=== PATIENT | female | born 1935 | race Caucasian/White ===

== ENCOUNTER 2022-02-18 14:00 | Outpatient (RCR) | payer MEDICARE, BC, SELFPAY | END 2022-04-20 13:07 | disposition home or self-care (01) | PROVIDERS: PCP Family Medicine; Visit Provider Family Medicine | DX: M54.41 Lumbago with sciatica, right side (principal); M62.81 Muscle weakness (generalized); Z51.89 Encounter for other specified aftercare | CPT/HCPCS: 97110; 97161 ==

== ENCOUNTER 2022-08-10 07:50 | Emergency (ER) | payer MEDICARE, BC, SELFPAY ==
[2022-08-10] VITALS (9 sets, daily range): BP systolic 121–141; BP diastolic 62–83; PULSE 66–72; RESP 16–18; TEMP 36.3; O2SAT 96–99; BMI 20.2
--- NOTE | 2022-08-10 09:00 | ED_ITS ---
HPI - General Adult General Chief complaint: Chest Pain Stated complaint: left shoulder pain Time Seen by Provider: 08/10/22 08:44 History of Present Illness HPI narrative: This 86-year-old female comes in reporting some pain in her left shoulder and neck. She also feels some pain down into her left breast. Occasionally this pain radiates down into her left hand. 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 She has been taking some [id number] medicines. She states that she wants to be sure that her heart is okay. She does not describe any additional symptoms of nausea, vomiting, lightheadedness, shortness of breath, or diaphoresis. She has good exercise tolerance and does not have any symptoms with exertion. Related Data Previous Rx's Medication Instructions Recorded fluorouracil 5 % topical cream 1 applic topical BID #40 grams 03/01/22 methylprednisolone 4 mg tablets in See Rx Instructions PO .COMPLEX 08/10/22 a dose pack (Medrol (Mark)) #21 ea Allergies Allergy/AdvReac Type Severity Reaction Status Date / Time No Known Drug Allergies Allergy Verified 08/02/22 11:15 Review of Systems Status of ROS: Reports: 10 or more systems reviewed and unremarkable except as noted in History and below Narrative: Constitutional: No fevers, no weight gain or loss. Eyes: No discharge. No vision changes. HENT: No congestion, no sore throat, no ear pain. Cardiovascular: No chest pain, no palpitations. Respiratory: No shortness of breath, no wheezes, no cough. Gastrointestinal: No abdominal pain, no vomiting, no diarrhea. Genitourinary: No dysuria, no hematuria. Musculoskeletal: Normal range of motion. She reports some pain in the left side of her neck extending into the posterior and anterior shoulder and occasionally down her arm. Skin: No rashes, no pruritis. Neurological: No dizziness, weakness, sensory change, speech change. Endo/Heme/Allergies: No bruising or bleeding. No polydipsia. Pysch: no suicidality, no anxiety, no insomnia. All other systems reviewed and are negative. PFSH PFSH Social History Smoking Status: Former smoker Do you use any of these nicotine containing products: None Second hand tobacco smoke exposure: No How often do you have a drink containing alcohol: never How often do you have six or more drinks on one occasion: Never AUDIT-C Alcohol total score: 0 Non-prescribed substance use: denies use service: No Exam Narrative: Exam Narrative: Constitutional: Well-developed, well-nourished, no acute distress. HEENT: Normocephalic, atraumatic. Neck: Normal range of motion. Nontender. Supple. Heart: Regular. No murmurs. Normal rate. Intact distal pulses. Lungs: Clear to auscultation. No chest discomfort. No wheezes, rhonchi, or rales. Abdomen: Normal bowel sounds. Nontender. No rebound tenderness. Genitalia: Deferred. Back: No midline tenderness. Normal range of motion. Extremities: Normal range of motion. No injury. Skin: Intact. No rash. Warm. No erythema or pallor. Neurologic: No altered sensation. No weakness. Alert and oriented. Psychiatric: No suicidality. No anxiety or depression. No insomnia. Nursing notes and vitals signs are reviewed. Const: Vital Signs, click to edit/add: Vital Signs - 24 hr 08/10/22 08:00 08/10/22 08:23 08/10/22 08:27 Temperature 97.4 F L Pulse Rate 68 70 Pulse Rate [Pulse Oximeter] 67 Respiratory Rate 18 16 Blood Pressure 126/81 Blood Pressure [Le ft Upper Arm] 141/80 H Pulse Oximetry 99 98 99 Oxygen Delivery Me thod Room Air Course Vital Signs Vital signs: Initial Vital Signs Temperature 97.4 F L 08/10/22 08:00 Temperature Source Temporal Artery Scan 08/10/22 08:00 Pulse Rate 67 08/10/22 08:00 Pulse Rhythm Regular 08/10/22 08:00 Respiratory Rate 18 08/10/22 08:00 Blood Pressure 141/80 H 08/10/22 08:00 Blood Pressure Mean 100 08/10/22 08:00 Blood Pressure Position Supine 08/10/22 08:00 Pulse Oximetry 99 08/10/22 08:00 Oxygen Delivery Method Room Air 08/10/22 08:00 Vital Signs Temperature 97.4 F L 08/10/22 08:00 Pulse Rate 67 08/10/22 08:00 Respiratory Rate 18 08/10/22 08:00 Blood Pressure 141/80 H 08/10/22 08:00 Pulse Oximetry 99 08/10/22 08:00 Oxygen Delivery Method Room Air 08/10/22 08:00 Temperature 97.4 F L 08/10/22 08:00 Pulse Rate 70 08/10/22 08:27 Respiratory Rate 16 08/10/22 08:27 Blood Pressure 126/81 08/10/22 08:27 Pulse Oximetry 99 08/10/22 08:27 Oxygen Delivery Method Room Air 08/10/22 08:00 Medical Decision Making MDM Narrative Medical decision making narrative: This patient comes in with left neck and shoulder symptoms as described above. Her symptoms are more suspicious for nerve impingement or muscle spasm. Her EKG returns normal. She is not showing any signs or symptoms suspicious for a cardiac cause for these symptoms. I did describe a Spurling's test maneuver in attempt to help diagnose a cervical radiculopathy. The patient states that she has vertigo symptoms when extending her head so she did not participate in this test. Nevertheless her symptoms are more suspicious for nerve impingement. I did offer lab and imaging studies which the patient declined in a process of shared decision making. She did receive a prescription for Medrol Dosepak. She is satisfied and reassured with her visit here and will use [id number] medicines additionally as needed and directed for symptomatic relief. ECG Data Attestation: I personally reviewed and interpreted this ECG as follows: Interpretation: Normal sinus rhythm. Rate is 66 beats per minute. There are no ST or T-wave abnormalities. Discharge Plan Discharge Clinical Impression: Cervical radiculopathy Patient Disposition: Home, Self-Care Condition: Unchanged Additional Instructions: Take medication as needed and directed. Use [id number] medicines also as needed and directed. Follow up with MD return if worsening. Prescriptions: New methylprednisolone [Medrol (Mark)] 4 mg tablets,dose pack See Rx Instructions .ROUTE .COMPLEX Qty: 21 0RF Rx Instructions: orally per package directions No Action fluorouracil 5 % cream 1 applic topical BID Qty: 40 0RF Rx Instructions: Apply topically to affected area once weekly Stand Alone Forms: [facility] Info Instructions
== END 2022-08-10 09:16 | disposition home or self-care (01) ==
LOC: ED 09:05
PROVIDERS: Emergency Provider Emergency Medicine Emergency Medical Services; PCP Family Medicine
DX: M54.12 Radiculopathy, cervical region (principal)
CPT/HCPCS: 93005; 99283; 99284

== ENCOUNTER 2022-08-16 06:31 | Emergency (ER) | payer MEDICARE, BC, SELFPAY ==
[2022-08-16 06:40] VITALS: BP 124/77; PULSE 76; RESP 16; TEMP 36.9; O2SAT 100; BMI 20.2
[2022-08-16] MEDS: predniSONE 10 MG TABLET 40 MG PO (07:23)
[2022-08-16] MEDS: ACETAMINOPHEN 325 MG TABLET 650 MG PO (07:23)
[2022-08-16] MEDS: OXYCODONE 5 MG TABLET 2.5 MG PO (07:23)
--- NOTE | 2022-08-16 07:30 | ED_ITS ---
HPI - General Adult General Chief complaint: Shoulder Injury/Pain Stated complaint: L shoulder pain Time Seen by Provider: 08/16/22 06:37 Source: patient and family Mode of arrival: ambulatory History of Present Illness HPI narrative: 86-year-old female presents the emergency department for evaluation of pain in the left shoulder blade radiating down the left arm. Patient had thorough workup 5 days ago, notes are reviewed. No signs of cardiac or pulmonary disease was identified. She was diagnosed with cervical radiculopathy and was started on Medrol Dosepak and Tylenol. Patient reports that she has been using Tylenol and completed her Medrol Dosepak yesterday but her symptoms are not improving. The might be a little bit better during the day but she is unable to sleep it is uncertain what to do. She was evaluated 3 days ago at the primary care clinic. I do not have access to the notes but I do have her discharge paperwork from that visit. She was started on some tizanidine. Patient reports that she tried it for a couple of days and it gave her terrible leg cramps so she did discontinue the medication. She has an upcoming appointment with her regular primary care doctor next week and referral placed to start physical therapy and to visit with the sports med doctor, Dr. Brennan. She has no prior history of injections. 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 She has not had an MRI. Her pain is not changed in quality or location. Achy type burning pain shooting down left arm. Focus is more on the dorsal surface as compared to the palmar surface. There is no weakness. No palpitations, shortness of breath, dizziness or cardiac symptoms of any kind. No trauma or injury. No rash. Past medical history she states is notable only for some mild skin cancers. No long-term health problems besides osteoarthritis of multiple sites. Her only prescription medicine is 5 FU cream prescribed by Dermatology. Socially she is a nonsmoker with no pertinent travel. Does live independently but uses no assistive devices at baseline. Supportive family. ROS is negative for other generalized, musculoskeletal, cardiac, pulmonary or skin changes. Related Data Previous Rx's Medication Instructions Recorded fluorouracil 5 % topical cream 1 applic topical BID #40 grams 03/01/22 methylprednisolone 4 mg tablets in See Rx Instructions PO .COMPLEX 08/10/22 a dose pack (Medrol (Mark)) #21 ea gabapentin 100 mg capsule 100 mg PO .ud #60 caps 08/16/22 oxycodone 5 mg tablet 2.5 - 5 mg (0.5 - 1 x 5 mg) PO QHS 08/16/22 PRN pain #5 tabs prednisone 10 mg tablet 10 mg PO DIRECTED #18 tabs 08/16/22 Allergies Allergy/AdvReac Type Severity Reaction Status Date / Time No Known Drug Allergies Allergy Verified 08/02/22 11:15 PFSH PFSH Social History Smoking Status: Former smoker Do you use any of these nicotine containing products: None Second hand tobacco smoke exposure: No How often do you have a drink containing alcohol: never How often do you have six or more drinks on one occasion: Never AUDIT-C Alcohol total score: 0 Non-prescribed substance use: denies use service: No Exam Const: Vital Signs, click to edit/add: Vital Signs - 24 hr 08/16/22 06:40 Temperature 98.5 F Pulse Rate [Left P ulse Oximeter] 76 Respiratory Rate 16 Blood Pressure [Ri ght Upper Arm] 124/77 Pulse Oximetry 100 Oxygen Delivery Me thod Room Air Documenting provider has reviewed patient's vital signs: yes Common normals: no apparent distress General appearance: cooperative and well kempt Other: Excellent historian. HENMT: Common normals: normocephalic Head and scalp: normocephalic Face and sinus: normal facial exam Eye: Common normals: conjunctivae normal Conjunctiva: conjunctiva(e) normal Other: Ambylopia seems chronic Neck & C-Spine: Other: She has normal cervical range of motion but does have tenderness with spondylosis testing of the cervical spine, left localizing along C5-6 and 7. No point bony tenderness. Resp: Common normals: normal respiratory effort and clear to auscultation bilaterally Effort & inspection: able to speak in complete sentences Auscultation: clear to auscultation bilaterally Cardio: Common normals: regular rate, regular rhythm, S1 normal heart sound, S2 normal heart sound and no murmurs Rate: regular rate Rhythm: regular rhythm Heart sounds: S1 normal and S2 normal Extremity: Other: Both shoulders with normal range of motion, no impingement on right. Very mild impingement on left but does not reproduce the symptoms that she is describing. Normal strength in arm and hand. Osteoarthritic changes very evident in hands and wrists. Neuro: Common normals: no focal motor deficits Speech: speech normal Psych: Appearance: well kempt Attitude: engaged Mood and affect: euthymic mood Skin: Common normals: no rashes or lesions noted General skin exam: no rashes or lesions noted Course Vital Signs Vital signs: Initial Vital Signs Temperature 98.5 F 08/16/22 06:40 Temperature Source Temporal Artery Scan 08/16/22 06:40 Pulse Rate 76 08/16/22 06:40 Respiratory Rate 16 08/16/22 06:40 Blood Pressure 124/77 08/16/22 06:40 Blood Pressure Mean 92 08/16/22 06:40 Blood Pressure Position Sitting 08/16/22 06:40 Pulse Oximetry 100 08/16/22 06:40 Oxygen Delivery Method Room Air 08/16/22 06:40 Vital Signs Temperature 98.5 F 08/16/22 06:40 Pulse Rate 76 08/16/22 06:40 Respiratory Rate 16 08/16/22 06:40 Blood Pressure 124/77 08/16/22 06:40 Pulse Oximetry 100 08/16/22 06:40 Oxygen Delivery Method Room Air 08/16/22 06:40 Temperature 98.5 F 08/16/22 06:40 Pulse Rate 76 08/16/22 06:40 Respiratory Rate 16 08/16/22 06:40 Blood Pressure 124/77 08/16/22 06:40 Pulse Oximetry 100 08/16/22 06:40 Oxygen Delivery Method Room Air 08/16/22 06:40 Medical Decision Making MDM Narrative Medical decision making narrative: Extensive prior workup reviewed. No signs of alternate pathology. Agree with diagnosis. Patient is already been referred for long-term management with physical therapy and financial analysis consultant visit, these are coming up. Together, we discussed the risks and benefits of more aggressive pain medication. Discussed the risk of confusion, fatigue. Prior symptoms are very bothersome and she did not tolerate the muscle relaxant. Unfortunately I suspect that use of a different muscle relaxant will cause the same side effects for her. I recommended a longer course of steroid and will try to dose this just in the morning. Will give 40 mg of prednisone today and then dose 30 mg once daily for 3 days, then 20 mg once daily for 3 days, then 10 mg daily for 3 days. This will get her through until about her upcoming subspecialty appointment. I recommended gabapentin as I do think that most of her pain is related to radiculopathy and nerve impingement. She will start 100 mg in the morning and 200 mg at bedtime. I have given her a limited supply of oxycodone 2 and half to 5 mg at bedtime as needed but just 5 tablets. She will receive 2.5 mg by mouth with some Tylenol here prior to discharge from the ED. Alarm symptoms that would warrant ED presentation were reviewed with patient. Counseled that it will take a few weeks for her pain to improve. It is okay to try melatonin or Benadryl at bedtime if she tolerates these. She verbalized understanding and agreement. Discharge Plan Discharge Clinical Impression: Cervical radiculopathy Patient Disposition: Home w/ Parent or Adult Condition: Stable Instructions: Cervical Radiculopathy (ED) Additional Instructions: I agree with the assessment from the other doctors. This does seem like arthritis in your neck that is pressing on a nerve in the C5/C6 area. This is the most common area for this. I wish that the Medrol Dosepak had worked better. I do think it extended course of steroids would be beneficial for you. I am going to switch you to prednisone. You have been given your 1st dose already today. Make sure you take this in the mornings as taking it too late in the evenings can make sleeping worse. Continue taking Tylenol 650 mg 4 times daily. You may also take ibuprofen, 400 mg 3 times daily even while you are on the prednisone. It sounds like you had too many side effects from the tizanidine, please stop that medication. I will start you on a medication called gabapentin, a nerve pain medication. Start by taking 1 tablet during the day and 2 tablets at bedtime. Follow up with her primary care doctor in a few days to see if this dose can be increased as we are starting very low. I will give you a few tablets of oxycodone to use at bedtime only, this is a stronger pain medicine. As we discussed, stronger pain medicines often can cause confusion in older adults. Together, we decided that the benefit outw eighs the risk for you since your pain is so bothersome. Try to use this sparingly and stop it right away once your pain improves. Keep your plan for physical therapy and follow up with Dr. Brennan as is planned Activity Level: Activity as Tolerated Discharge Diet: Regular Prescriptions: New prednisone 10 mg tablet 10 mg PO DIRECTED Qty: 18 0RF Rx Instructions: 3 tablets by mouth once daily for 3 days, then 2 tablets by mouth daily for 3 days, gabapentin 100 mg capsule 100 mg PO .ud Qty: 60 0RF oxycodone 5 mg tablet 2.5 - 5 mg PO QHS PRN (Reason: pain) Qty: 5 0RF No Action fluorouracil 5 % cream 1 applic topical BID Qty: 40 0RF Rx Instructions: Apply topically to affected area once weekly methylprednisolone [Medrol (Mark)] 4 mg tablets,dose pack See Rx Instructions .ROUTE .COMPLEX Qty: 21 0RF Rx Instructions: orally per package directions Follow Up/Referrals: Wisam Lares MD [Primary Care Provider] - Stand Alone Forms: [facility] Info Instructions
== END 2022-08-16 07:45 | disposition home or self-care (01) ==
PROVIDERS: Emergency Provider Family Medicine; PCP Family Medicine
DX: M54.12 Radiculopathy, cervical region (principal)
CPT/HCPCS: 99283; A9270; J7512

== ENCOUNTER 2024-09-12 21:25 | Emergency (ER) | payer MEDICARE, BC, SELFPAY ==
--- OUTSIDE RECORDS SUMMARY | 2024-09-12 21:28 | XMS_ITS | Clinical Summary ---
Author Organization [employer] [facility] Address [address] [place] [id number] Care Team Providers Care Machine Joint Cutter Name Role Phone Be Fong MD Unavailable [phone] Kelly Arana Unavailable [phone] Wisam Lares MD Primary Care Provider + [phone] Allergies No known active allergies Medications multivitamin (MVI) tablet Take 1 tablet by mouth once daily. 0 6 Active potassium gluconate 550 mg (90 mg) tab Take by mouth. 0 6 Active magnesium 250 mg tabIndications: Leg cramps Take 1 tablet by mouth 3 times daily. 270 tablet 3 0 Active Additional Information Patient taking differently:250 mg OralDAILY, Reported on 07/17/2024 glucosamine HCl/chondroitin solomon (GLUCOSAMINE-CH ONDROITIN ORAL) Take 1,500 mg by mouth. Active cholecalciferol (Vitamin D-3) 2,000 unit capsule Take 1 Capsule (2,000 units) by mouth once daily. 5 Active Active Problems Problem Noted Date Diagnosed Date Lumbar radiculopathy 08/19/2022 Spinal stenosis of lumbar region 05/12/2022 ACP (advance care planning) 08/10/2020 Overview (08/10/2020): Patient has registered for the August 12, 2020 virtual ACP class. CORKY Antunez Advance Care Planning Educator Laryngitis from reflux of stomach acid 09/30/202 0 Sensorineural hearing loss, bilateral 12/07/2016 History of migraine headaches 06/04/2015 Lumbar neuroforaminal stenosis 01/19/2011 Degeneration of lumbar or lumbosacral interverte bral disc 01/19/2011 Spondylolisthesis of lumbar region 01/19/2011 Hyperplastic colon polyp 10/22/2010 Overview (12/16/2011): Colonoscopy 10/2010 polyp repeat in 1-2 years given poor prep Colonoscopy 11/2011 normal, no follow up needed Migraine, unspecified, witho ut mention of intractable migraine without mention of status migrainosus Mixed hyperlipidemia Encounters Date Type Department Care Team Description 07/17/2024 10:55 AM CDT Office Visit [facility] [address] [place] [address] Wisam Lares MD Medicare ANNUAL (subsequent) Visit (88 yo) 07/17/2024 Travel 07/04/2024 3:20 PM CDT Ancillary Procedure [facility] [address] [place] [address] 07/04/2024 Travel 06/25/2024 10:05 AM CDT Office Visit [facility] [address] [place] [address] Taran Ratliff MD Dizziness (Room spinning dizziness, happened 3 times while laying down on back in bed) 06/25/2024 Travel 06/19/2024 Nurse Triage [facility] [address] [place] [address] Wisam Lares MD Dizziness from Last 3 Months Immunizations Immunization Administration Dates Next Due AMB Influenza, IIV3 (Age >=3 years)(Flu Clinic Only) 01/18/2013,01/18/2012 COVID-19 vaccine ([employer] 30mcg/0.3mL) ANTHONY HERNANDEZ 06/13/2020,05/23/2020 Influenza, High-dose Inactivated 024,01/25/2019,02/09/2018,01/12,01/19/2016,01/12/2015,02/07/2014 Influenza, High-dose Quadriv alent Inactivated 01/11/2023,02/14/2022,01/01/2021,12/19 Influenza, IIV3 (Age 6-35 mos) 01/19/2011,2009 Influenza, IIV3 (Age >=3 years) 01/20/20 11,02/28/2007,02/23/2005,02/08 Influenza, Inactivated AIIV4 (Age 65+ Years) Preserv Free 12/20/2019 Influenza, Inactivated IIV3 (Age 65+ Years) Preserv Free 01/15/2018,01/15/2017 Oral Polio Vaccine 10/09/1991 Pneumococcal Poly,23-Valent (Pneumovax) 02/15/2006 Pneumococcal conj 13-Valent (Prevnar 13) 06/11/2014 RSV, Recombinant ADJ Reconst ituted (Arexvy 120MCG/0.5mL) 05/10/2023 Td (Age >=7 Years) 10/28/2002 Tdap 06/27/2023,03/23/2012 Varicella Vaccine 08/19/2006 Yellow Fever 10/09/1991 Zoster (Shingrix-RZV, recombinant) 03/05,02/20/2018,11/15/2017,10/11 Zoster (Zostavax-ZVL, live) 05/06/2013, 7 Family History Medical History Relation Name Comments Memory loss Brother Arthritis Father Other Father Alzheimer's - d ied at 83 Alzheimer's disease Half-Sister 1 Laly Lung cancer Half-Sister 2 Heide of this a t age 75 Arthritis Mother Other Mother depression afte r - at 93 Stroke Mother Cancer Paternal Grandmother unknown type Cancer-breast Paternal Grandmother Relation Name Status Comments Brother Alive Father Half-Sister 1 Laly Alive Half-Sister 2 Heide Mother Paternal Grandmother Social History Tobacco Use Types Packs/Day Years Used Date Smoking Tobacco: Former Cigarettes 0.2 4 1 958 - 1962 Passive Smoke Exposure: Never Smokeless Tobacco: Never Tobacco Cessation:Counseling Given: No Alcohol Use Standard Drinks/Week Comments No 0 (1 standard drink = 0.6 oz pur e alcohol) PHQ-2 Answer Date Recorded PHQ-2 TOTAL SCORE 0 07/17/2024 Social Connections Answer Date Recorded Do you often feel lonely or isolated from those around you? 0 09/20/2023 Financial Resource Strain Answer Date R ecorded Difficulty of Paying Living Expenses 3 09/20/2023 Difficulty of Paying Living Expenses Not on file 09/20/2023 Food Insecurity Answer Date Recorded Do you worry your food will run out before you are able to buy more? 1 09/20/2023 Transportation Needs Answer Date Record ed Does lack of transportation keep you from medica l appointments? 1 09/20/2023 Does lack of transportation keep you from work, meetings or getting things that you need? 1 09/20/2023 Housing Stability Answer Date Recorded What is your housing situation today? 1 09/20/2023 Utilities Answer Date Recorded Do you have trouble paying f or utilities (for example, heat, electricity, water, phone)? 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 Gender Identity Not on file Sexual Orientation Not on file Occupation Industry Job Start Date Job End Date retired Not on file Not on file Not on file Obstetrics History Para Term AB IAB SAB Ectopic Multiple Livin g Live Births 3 2 2 0 1 0 1 0 0 2 Date Outcome GA Total Labor Labor/2nd/3rd Weight Sex Type Anes PTL Rebeca A1 A5 Name Clin SAB Term Term Last Filed Vital Signs Vital Sign Reading Time Taken Comments Blood Pressure 119/74 07/17/2024 11:22 AM CDT Pulse 68 07/17/2024 11:22 AM CDT Temperature 36.6 C (97.8 F) 07/17/2024 11:22 AM CDT Respiratory Rate - - Oxygen Saturation 97% 07/17/2024 11:22 AM CDT Inhaled Oxygen Concentration - - Weight 56 kg (123 lb 8 oz) 07/17/2024 11:22 AM C DT Height 161.8 cm (5' 3.7) 03/21/2023 9:21 AM SPRING MAKER Body Mass Index 21.4 03/21/2023 9:21 AM SPRING MAKER Plan of Treatment Health Maintenance Due Date Last Done Comments BMI (ht and wt on same day) for age 18+ 03/21/2024 03/21/2023, 05/12/2022, 08/27/2020, Additional history exists COVID-19 vaccine series ( season) 2024 01/01/2024, 06/13/2023, 01/11/2022, Additional history exists Depression screening for age 12+ 07/17/2025 07/17/2024, 03/21/2023, 09/02/2021, Additional history exists Medicare Wellness for age 65+ 07/18/2025 07/17/2024, 03/21/2023, 01/15/2020, Additional history exists Tetanus booster 06/26/2033 06/27/2023, 10/2011, 10/28/2002 DEXA/DXA scan for age 65+ Completed 09/23/2003 Pneumococcal series for age 50+ Completed 06/11/2014, 02/15/2006 Zoster (shingles) series for age 50+ Completed 03/05/2018, 02/20/2018, 11/15/2017, Additional history exists RSV vaccine for adults or Completed 05/10/2023 Tdap Completed 06/27/2023, 03/23/2012 Influenza Vaccine Completed 02/12/2024, , 01/25/2019, Additional history exists Hepatitis B series for 19+ Aged Out N o longer eligible based on patient's age to complete this topic Procedures Procedure Name Priority Date/Time Associated Diagnosis Comments XR MAMMO DERIK BILAT SCREEN Routine 07/04/2024 3:16 PM CDT Visit for screening mammogram from Last 3 Months Results * XR MAMMO DERIK BILAT SCREEN (07/04/2024 3:16 PM CDT) Anatomical Region Laterality Modality BREASTS, Breast Left, Breast Right Bilateral Mammography Impressions 07/04/2024 4:04 PM CDT There is no radiographic evidence for malignancy. Recommend annual mammograms. MAMMOGRAM ASSESSMENT: ACR 1 Negative PATIENTS: You will also receive a letter with your examination results in an easy to read format. If you have questions about your results, please contact your referring provider. Narrative 07/04/2024 4:04 PM CDT For Patients: As a result of the Century Cures Act, medical imaging exams and procedure reports are released immediately into your electronic medical record. You may view this report before your referring provider. If you have questions, please contact your health care provider. XR MAMMO DERIK BILAT SCREEN [[id number]] CLINICAL HISTORY: This is an asymptomatic 88 y.o. patient. INDICATION FOR EXAM: Mammogram Screening. TECHNIQUE: CC and MLO views were obtained. This study was evaluated with the assistance of Computer-Aided Detection. Breast Tomosynthesis was used in interpretation. COMPARISON FILM: Yes 10/13/22 [facility] 09/07/21 [facility] FINDINGS: The breasts are heterogeneously dense, which may obscure small masses. There are no dominant masses, suspicious micro calcifications or areas of architectural distortion. us Wisam Lares MD MAMMO Final Resu lt from Last 3 Months Insurance [place] MR PB ONLY MEDICARE PART B HB ONLY [place] HB ONLY Advance Directives Documents on File Type Date Recorded Patient Cuff Presser Expl anation Power of Cow Buyer 06/15/2006 Short Form and Durable Power of Cow Buyer Healthcare Directive 06/15/2006 Care Teams Machine Joint Cutter Relationship Specialty Start Date End Date Wisam Lares MD [address] [place] [address] PCP - General Family Practice 01/19/22 Be Fong MD [address] [place] [address] Sports Medicine 12/21/10 Kelly Arana AuD [address] [place] [address] Audiology 12/07/16
[2024-09-12 21:31] VITALS: BP 164/89; PULSE 75; RESP 16; TEMP 36.2; O2SAT 97; BMI 21.6
--- NOTE | 2024-09-12 21:47 | ED_ITS ---
HPI - General Adult General Date Seen: 09/12/24 Chief complaint: Fall/Minor Trauma Stated complaint: fall, head and right shoulder pain Time Seen by Provider: 09/12/24 21:47 History of Present Illness HPI narrative: This is an 88-year-old female with a history of cervical radiculopathy, hyperlipidemia, hearing loss, colon polyps, lumbar stenosis, migraine headaches, who presents to the ER tonight by private car accompanied by her daughter and her . She is generally pretty healthy. She lives at home with her . She was walking tonight when she accidentally tripped over a threshold of the door. She fell forward and struck her right forehead against the tile floor. She also caught summer weight on her right shoulder and might have bumped her right knee. She was not knocked out but she did suffer a laceration to her right forehead just above her eyebrow and noted some swelling there. She has a mild headache. Vision is normal. No neck pain. She has some achiness in her right shoulder but has been moving it pretty well and is able lift her right arm over her head. No numbness down her right arm. She also had some mild achiness in her right knee. She knows she has a painful right arthritic knee and she is not sure if she bumped it when she fell or she just stretched it funny as she fell down. She does not have any chest pain or back pain. No abdominal pain. She is not anticoagulated. No nausea vomiting. Related Data Home Medications ?Medication ?Instructions ?Recorded ?Confirmed potassium gluconate PO .pm 09/12/24 Allergies Allergy/AdvReac Type Severity Reaction Status Date / Time No Known Drug Allergies Allergy Verified 09/12/24 21:29 [facility] Social History Smoking Status: Former smoker Do you use any of these nicotine containing products: None Second hand tobacco smoke exposure: No How often do you have a drink containing alcohol: never How often do you have six or more drinks on one occasion: Never AUDIT-C Alcohol total score: 0 Non-prescribed substance use: denies use service: No Exam Narrative: Exam Narrative: Primary Survey: A- patent. Speaking clearly. Phonation normal. No stridor. B- breathing easily. Lung sounds clear and equal. Oxygen saturation normal on room air C- no active bleeding. Blood pressure stable. Symmetric pulses and cap refill in 4 extremities. D- alert and oriented x3. GCS 15. No focal deficits. Constitutional: Appears well-developed and well-nourished. Alert. Conversant. Non toxic. HENT: Head: 1 cm linear laceration parallel to and just superior to the lateral and of the patient's right eyebrow. Small amount of right forehead ecchymosis and swelling. No palpable underlying scalp hematoma. No depressed skull fracture, Raccoon Eyes, Cali's sign, or hemotympanum. Face normal. TMs normal Nose: Nose normal. Mouth/Throat: Oral mucosa is clear and moist. no trismus. Pharynx normal. Tonsils symmetric. No tonsillar enlargement, erythema, or exudate. Eyes: Conjunctivae normal. EOM normal. Pupils equal, round, and reactive to light. No scleral icterus. Neck: Normal range of motion. Neck supple. No tracheal deviation present. Cardiovascular: Normal rate, regular rhythm. No gallop. No friction rub. No murmur heard. Symmetric radial artery pulses Pulmonary/Chest: Effort normal. No stridor. No respiratory distress. No wheezes. No rales. No rhonchi . No tenderness. Abdominal: Soft. No distension. No mass. No tenderness. No rebound. No guarding. Musculoskeletal: RUE: Tenderness over the right proximal humerus and shoulder without any crepitus. Clavicle nontender. Range of motion of the right shoulder is from neutral position to with about 90? of abduction, just past 90? of forward flexion. Normal internal external rotation. Humeral shaft, elbow, forearm, wrist, hand are normal. Intact axillary, radial, median, ulnar nerve sensory function. LUE: Normal range of motion. No tenderness. No deformity RLE: Normal range of motion in her hip, knee, ankle.. No edema. Mild anterior knee tenderness. No ecchymosis. No swelling. No deformity. Hip, thigh, lower leg, ankle, foot are uninjured. LLE: Normal range of motion. No edema. No tenderness. No deformity Neurological: Mental status normal. Attention normal. Alert and oriented x3. GCS 15. Memory normal. Speech fluent. Cognition normal. Cranial Nerves intact II-XII except I did not formally test gag or visual acuity. EOMI. Palate elevates symmetrically and tongue protrudes in the midline. Strength: 5/5 trapezius on the right and left 5/5 deltoid on the right and left 5/5 biceps on the right and left 5/5 triceps on the right and left 5/5 pharmacy benefit manager on the right and left 5/5 thumb opposition on the right and le ft 5/5 finger abduction on the right and le ft 5/5 hip flexors (L3) on the right and le ft 5/5 quadriceps (L4) on the right and lef t 5/5 tibialis anterior on the right and l eft 5/5 EHL (L5) on the right and left 5/5 gastrocnemius (S1) on the right and left 5/5 hamstring on the right and left Sensation intact to light touch in both upper extremities (C4-T1) Sensation intact to light touch in Both lower extremities (L4-S1). Finger to nose and coordination normal. Gait normal. Skin: Skin is warm and dry. No rash noted. No pallor. Normal capillary refill. Psychiatric: Normal mood. Normal affect. Const: Vital Signs, click to edit/add: Vital Signs - 24 hr 09/12/24 21:31 09/12/24 23:05 Temperature 97.1 F L 98.8 F Pulse Rate [Pulse Oximeter] 75 68 Respiratory Rate 16 18 Blood Pressure [Ri ght Upper Arm] 164/89 H 179/98 H Pulse Oximetry 97 100 Oxygen Delivery Me thod Room Air Room Air Course Vital Signs Vital signs: Initial Vital Signs Temperature 97.1 F L 09/12/24 21:31 Temperature Source Temporal Artery Scan 09/12/24 21:31 Pulse Rate 75 09/12/24 21:31 Respiratory Rate 16 09/12/24 21:31 Blood Pressure 164/89 H 09/12/24 21:31 Blood Pressure Mean 114 H 09/12/24 21:31 Blood Pressure Position Sitting 09/12/24 21:31 Pulse Oximetry 97 09/12/24 21:31 Oxygen Delivery Method Room Air 09/12/24 21:31 Vital Signs Temperature 97.1 F L 09/12/24 21:31 Pulse Rate 75 09/12/24 21:31 Respiratory Rate 16 09/12/24 21:31 Blood Pressure 164/89 H 09/12/24 21:31 Pulse Oximetry 97 09/12/24 21:31 Oxygen Delivery Method Room Air 09/12/24 21:31 Temperature 98.8 F 09/12/24 23:05 Pulse Rate 68 09/12/24 23:05 Respiratory Rate 18 09/12/24 23:05 Blood Pressure 179/98 H 09/12/24 23:05 Pulse Oximetry 100 09/12/24 23:05 Oxygen Delivery Method Room Air 09/12/24 23:05 Medications Administered Medications: Discontinued Medications Generic Name Dose Route Start Last Admin Trade Name Janny PRN Reason Stop Dose Admin Acetaminophen 1,000 mg 09/12/24 22:47 09/12/24 22:56 Acetaminophen 500 Mg Tablet PO 09/12/24 22:48 1,000 mg ONCE ONE Administration Medical Decision Making MDM Narrative Medical decision making narrative: This is a very pleasant 88-year-old female who is not anticoagulated. She presents to the ER [facility] for evaluation of injuries after mechanical trip and fall that occurred just prior to arrival this evening. This patient presents with blunt head trauma. Differential includes intracranial injuries (e.g. skull fracture, epidural hematoma, subdural hematoma, intracerebral hemorrhage, and traumatic subarachnoid hemorrhage), verses concussion or other traumatic brain injury. CT imaging was obtained and fortunately was normal. At this time it appears that the patient's symptoms are due to a concussion. The patient/family understand that they must return if any red flags appear/develop in the coming hours/days, as this may represent an indication to perform a repeat CT scan or further evaluation. I have noted that red flags include: headaches that get worse, increased drowsiness, strange behavior, repetitive speech, seizures, repeated vomiting, growing confusion, increased irritability, slurred speech, weakness or numbness, and loss of responsiveness. This information will also be provided in writing at discharge. I have discussed the second impact syndrome, and the importance of not sustaining repeated concussion in the next 1-2 weeks. Post concussive syndrome is also discussed. The patient's questions have been answered. They have a responsible adult to accompany them home. Patient C-spine cannot be cleared by clinical criteria based on the patient's of other distracting injuries. She is neurologically intact. C-spine CT is normal X-rays of the patient's right shoulder show no acute fracture or dislocation X-rays the patient's right knee show no acute fracture or definite injury but do show fairly advanced arthritis and small joint effusion. She has no redness or warmth of the knee to suggest septic arthritis. Suspect the effusion could be related to arthritis or potentially might be related to trauma. At this point would hold off on arthrocentesis. Findings and exam are consistent with an uncomplicated laceration which was repaired as noted above. Discussed options for wound care including glue, sutures, healing by secondary intention. Patient gave verbal consent closure with glue There is no evidence at this time to suggest any associated fracture or foreign body. Indications to seek urgent reevaluation and signs of infection (including but not limited to increasing pain, redness, swelling, fevers, and drainage) were reviewed. Tetanus is up-to-date. This is a clean and noncontaminated wound in which prophylactic antibiotics are not indicated. An understanding of the discharge instructions and need for follow up were verbally confirmed. Imaging Data CT scan - head: Attestation: I have reviewed the pertinent imaging results. Radiologist's impression: IMPRESSION: No acute intracranial abnormality. No acute fracture. CT C spine: Attestation: I have reviewed the pertinent imaging results. Radiologist's impression: IMPRESSION: No acute fracture or dislocation identified. XR Right knee: Attestation: I have reviewed the pertinent imaging results. My impression: Signs of degenerative arthritis. No definite fracture. Radiologist's impression: Impression: No definite acute fracture. Severe tricompartmental osteoarthritis. Moderate knee joint effusion.. XR Right shoulder: Attestation: I have reviewed the pertinent imaging results. My impression: No acute fracture Radiologist's impression: Findings: Bones: No acute fracture or dislocation. Joint spaces: Unremarkable. Soft tissues: Unremarkable. Impression: No acute fracture or dislocation. Discharge Plan Discharge Clinical Impression: Head injury, Forehead laceration, Acute shoulder pain, Acute pain of right knee Patient Disposition: Home, Self-Care Condition: Stable Instructions: Laceration (DC), Head Injury (DC), Knee Pain (ED), Shoulder Pain (ED) Additional Instructions: As we discuss so for your scans and x-rays look good. No broken bones. No signs of serious internal injuries or brain injury. However please come back to the ER right away if you have any concerns especially worsening headache, confusion, vomiting, worsening shoulder pain or leg pain or knee pain. To care for your wound, keep the dressing on today and tomorrow. Change the dressing once daily as needed. Try to keep the wound dry. Do not get it wet or apply antibiotic ointments for other moisture the which might dissolve the glue. If we can keep the glue in place for the next 5-7 days the wound underneath should heal. After that, it is okay to get the wound wet. Watch for signs of infection such as redness, swelling, or pus draining from the wound. If you have any concerns, please come back to the ER right away or see your doctor immediately. Prescriptions: No Action potassium gluconate PO .pm Follow Up/Referrals: Wisam Lares MD [Primary Care Provider, Family Practice] Stand Alone Forms: [facility] Info Instructions Procedures Laceration Right forehead: Pre procedure diagnosis: 1 cm right forehead laceration Verification/time out: correct patient and correct site Site: face Side (If applicable): right Size (cm): 1 Description: linear Depth: simple, single layer Pre-repair: wound explored, irrigated extensively and deep structures intact Skin layer closed with: other (Dermabond)
--- NOTE | 2024-09-12 22:05 | CRLHL7_ITS ---
For Patients: As a result of the Cures Act, medical imaging exams and procedure reports are released immediately into your electronic medical record. You may view this report before your referring provider. If you have questions, please contact your health care provider. Indication: Blunt trauma. Technique: Right shoulder 3 views. Comparison: None. Findings: Bones: No acute fracture or dislocation. Joint spaces: Unremarkable. Soft tissues: Unremarkable. Impression: No acute fracture or dislocation. Dictated by Grayson Rogers MD @ 09/12/2024 11:28:11 PM (Electronically Signed)
--- NOTE | 2024-09-12 22:05 | CRLHL7_ITS ---
For Patients: As a result of the Cures Act, medical imaging exams and procedure reports are released immediately into your electronic medical record. You may view this report before your referring provider. If you have questions, please contact your health care provider. INDICATION: Fall, blunt trauma, head trauma. TECHNIQUE: CT cervical spine without contrast. COMPARISON: None. FINDINGS: Vertebrae: Straightening of the physiologic cervical lordosis. There are no fractures or suspicious bony lesions. Discs and facet joints: Multilevel degenerative changes. Extraspinal findings: Prevertebral soft tissues are unremarkable. Biapical lung scarring. No apical pneumothorax. IMPRESSION: No acute fracture or dislocation identified. Please note that all CT scans at this facility use dose modulation, iterative reconstruction, and/or weight-based dosing when appropriate to reduce radiation dose to as low as reasonably achievable. Dictated by Grayson Rogers MD @ 09/12/2024 11:14:18 PM (Electronically Signed)
--- NOTE | 2024-09-12 22:05 | CRLHL7_ITS ---
For Patients: As a result of the Cures Act, medical imaging exams and procedure reports are released immediately into your electronic medical record. You may view this report before your referring provider. If you have questions, please contact your health care provider. Indication: Blunt trauma. Technique: Right knee 3 views Comparison: None Findings: Bones: No definite acute fracture or dislocation. Joint spaces: Severe tricompartmental osteoarthritis. Moderate knee joint effusion. Soft tissues: Unremarkable. Impression: No definite acute fracture. Severe tricompartmental osteoarthritis. Moderate knee joint effusion.. Dictated by Grayson Rogers MD @ 09/12/2024 11:26:37 PM (Electronically Signed)
--- NOTE | 2024-09-12 22:05 | CRLHL7_ITS ---
For Patients: As a result of the Century Cures Act, medical imaging exams and procedure reports are released immediately into your electronic medical record. You may view this report before your referring provider. If you have questions, please contact your health care provider. INDICATION: Fall, blunt trauma, head trauma, forehead laceration. TECHNIQUE: CT head without contrast. COMPARISON: CT sinus from 07/08/2020. FINDINGS: CSF spaces: Within normal limits for age. Brain parenchyma and extra-axial spaces: Mild generalized volume loss consistent with physiologic aging. Mild periventricular white matter hypoattenuation suggestive of chronic microvascular disease. No sign of mass, hemorrhage, or midline shift. No extra-axial fluid collection. Skull base and calvarium: Scattered paranasal sinus opacification. Mastoids are clear. Bilateral lens replacements. Right frontal scalp swelling and laceration, but no underlying fracture. IMPRESSION: No acute intracranial abnormality. No acute fracture. Please note that all CT scans at this facility use dose modulation, iterative reconstruction, and/or weight-based dosing when appropriate to reduce radiation dose to as low as reasonably achievable. Dictated by Grayson Rogers MD @ 09/12/2024 11:22:04 PM (Electronically Signed)
[2024-09-12] MEDS: ACETAMINOPHEN 500 MG TABLET 1000 MG PO (22:56)
[2024-09-12 23:05] VITALS: BP 179/98; PULSE 68; RESP 18; TEMP 37.1; O2SAT 100
== END 2024-09-12 23:40 | disposition home or self-care (01) ==
PROVIDERS: Emergency Provider Emergency Medicine; PCP Family Medicine
DX: S01.111A Laceration without foreign body of right eyelid and periocular area, initial encounter (principal); M25.511 Pain in right shoulder; M25.561 Pain in right knee; W01.0XXA Fall on same level from slipping, tripping and stumbling without subsequent striking against object, initial encounter
CPT/HCPCS: 12011; 70450; 72125; 73030; 73562; 99283; 99284; A9270